=== PATIENT | female | born 1980 | race Caucasian/White ===

== ENCOUNTER 2021-07-10 19:50 | Emergency (ER) | payer MEDICAID ==
[2021-07-10] MEDS: Ondansetron 4 MG/2 ML SDV IVPUSH ONE (20:30)
[2021-07-10] MEDS: Ondansetron 4 MG/2 ML SDV ONE (20:45)
[2021-07-10] MEDS: Ketorolac 30 MG/ML SDV IVPUSH ONE (20:45)
[2021-07-10] MEDS: diphenhydrAMINE 50 MG/ML SDV IVPUSH ONE (20:46)
[2021-07-10] MEDS: Sodium Chloride 0.9% 1,000 ML ONE (20:46)
[2021-07-10] MEDS: Sodium Chloride 0.9% 1,000 ML IV ONE (20:47)
[2021-07-10 21:22] VITALS: BP 146/85; PULSE 84
[2021-07-10] MEDS: Acetaminophen/HYDROcodone 325-10 MG Tab PO ONE (21:54)
== END 2021-07-10 21:54 | disposition home or self-care (01) ==
LOC: KA.ED 19:50
DX: G43.109 Migraine with aura, not intractable, without status migrainosus (principal); I10 Essential (primary) hypertension; K21.9 Gastro-esophageal reflux disease without esophagitis; E66.9 Obesity, unspecified; Z68.41 Body mass index [BMI] 40.0-44.9, adult; Z88.7 Allergy status to serum and vaccine; Z79.899 Other long term (current) drug therapy
CPT/HCPCS: 96374; 96375; 99283; A9270; J1200; J1885; J2405; J7030

== ENCOUNTER 2021-07-21 15:59 | Emergency (ER) | payer MEDICAID ==
[2021-07-21] MEDS ORDERED: diphenhydrAMINE 50 MG/ML SDV IVPUSH ONE (16:33)
[2021-07-21] MEDS ORDERED: Sodium Chloride 0.9% 1,000 ML IV ONE (16:33)
[2021-07-21 17:13] LABS: ANION GAP 10.1 mmol/L (5-15); CHLORIDE,CL 101 mmol/L (98-107); SODIUM,NA 139 mmol/L (136-145)
[2021-07-21] MEDS ORDERED: Ketorolac 30 MG/ML SDV IM ONE (17:17)
[2021-07-21] MEDS: Ketorolac 30 MG/ML SDV IVPUSH ONE ×2 (17:28→17:31)
== END 2021-07-21 18:20 | disposition home or self-care (01) ==
LOC: KA.ED 15:59
DX: G43.909 Migraine, unspecified, not intractable, without status migrainosus (principal); I10 Essential (primary) hypertension; E66.9 Obesity, unspecified; Z68.30 Body mass index [BMI] 30.0-30.9, adult; Z88.7 Allergy status to serum and vaccine; Z79.899 Other long term (current) drug therapy
CPT/HCPCS: 36415; 80053; 85025; 96372; 96374; 96375; 99283; J1200; J1885; J7030

== ENCOUNTER 2021-07-30 13:05 | Emergency (ER) | payer MEDICAID ==
[2021-07-30] MEDS ORDERED: Sodium Chloride 0.9% 10 ML Syringe FLUSH PRN (13:09)
[2021-07-30] MEDS ORDERED: Sodium Chloride 0.9% 1,000 ML IV ONE (13:09)
[2021-07-30] MEDS ORDERED: Ketorolac 30 MG/ML SDV IVPUSH ONE (13:09)
[2021-07-30] MEDS ORDERED: Metoclopramide 10 MG/2 ML SDV IVPUSH ONE (13:09)
[2021-07-30] MEDS ORDERED: diphenhydrAMINE 50 MG/ML SDV IVPUSH ONE (13:09)
== END 2021-07-30 14:35 | disposition home or self-care (01) ==
LOC: KA.ED 13:05
DX: G43.919 Migraine, unspecified, intractable, without status migrainosus (principal); I10 Essential (primary) hypertension; J45.909 Unspecified asthma, uncomplicated; Z79.899 Other long term (current) drug therapy; Z88.7 Allergy status to serum and vaccine
CPT/HCPCS: 96374; 96375; 99283-25; 99284; J1200; J1885; J2765; J3490; J7030

== ENCOUNTER 2023-01-31 21:27 | Emergency (ER) | payer MEDICAID ==
[2023-01-31] MEDS ORDERED: Cephalexin 250 MG Cap PO ONE (22:12)
== END 2023-01-31 22:33 | disposition home or self-care (01) ==
LOC: KA.ED 21:27
DX: L03.116 Cellulitis of left lower limb (principal); Z88.7 Allergy status to serum and vaccine
CPT/HCPCS: 10060; 87070; 87075; 87205; 99283; A9270; 87186

== ENCOUNTER 2025-01-12 20:03 | Emergency (ER) | payer MEDICAID ==
[2025-01-12] MEDS ORDERED: Sodium Chloride 0.9% 10 ML Syringe FLUSH PRN (20:23)
[2025-01-12] MEDS: Sodium Chloride 0.9% 10 ML Syringe FLUSH PRN (20:30)
[2025-01-12 20:36] LABS: BASOPHILS ABSOLUTE AUTO 0.02 10^3/uL (0.00-0.10); BASOPHILS PERCENT AUTO 0.2 % (0.0-1.0); EOSINOPHILS ABSOLUTE AUTO 0.24 10^3/uL (0.10-0.30); EOSINOPHILS PERCENT AUTO 2.5 % (1.0-3.0); IMMATURE GRAN ABSOLUTE AUTO 0.02 10^3/uL (0.00-0.04); IMMATURE GRAN PERCENT AUTO 0.2 % (0.0-0.4); LYMPHOCYTES ABSOLUTE AUTO 2.89 10^3/uL (1.00-4.00); LYMPHOCYTES PERCENT AUTO 29.6 % (20.0-40.0); MEAN PLATELET VOLUME 10.2 fL (7.4-10.4); MONOCYTES ABSOLUTE AUTO 0.83 10^3/uL (0.10-0.80); MONOCYTES PERCENT AUTO 8.5 % (2.0-8.0); NEUTROPHILS ABSOLUTE AUTO 5.76 10^3/uL (2.50-7.00); NEUTROPHILS PERCENT AUTO 59.0 % (50.0-70.0); PLATELET COUNT,PLT 242 10^3/uL (150-400); RED BLOOD CELL COUNT 4.26 10^6/uL (3.80-5.50); RED CELL DISTRIBUTION WIDTH 12.9 % (11.5-14.5); WHITE BLOOD CELL COUNT,WBC 9.76 10^3/uL (5.00-10.00)
[2025-01-12] MEDS: Ondansetron 4 MG/2 ML SDV IVPUSH ONE (20:39)
[2025-01-12 20:54] LABS: ALANINE AMINOTRANSFERASE,ALT 44 U/L (14-63); ASPARTATE AMNIOTRANSFERASE,AST 22 U/L (15-37); BILIRUBIN TOTAL 0.5 mg/dL (0.2-1.0); BLOOD UREA NITROGEN,BUN 10 mg/dL (7-18); CARBON DIOXIDE,CO2 31.4 mmol/L (21.0-32.0); CHLORIDE,CL 102 mmol/L (98-107); CREATININE 0.92 mg/dL (0.51-1.17); GLUCOSE RANDOM 129 mg/dL (70-140); POTASSIUM,K 3.6 mmol/L (3.5-5.1); PROTEIN TOTAL,TP 7.0 g/dL (6.4-8.2); SODIUM,NA 140 mmol/L (136-145)
[2025-01-12 20:55] LABS: ESTIMATED GFR 79 mL/min (>=60)
[2025-01-12] MEDS: diphenhydrAMINE 50 MG/ML SDV IVPUSH ONE (21:16)
[2025-01-12] MEDS: Ketorolac 30 MG/ML SDV IVPUSH ONE (21:20)
== END 2025-01-12 21:57 | disposition home or self-care (01) ==
LOC: KA.ED 20:03
DX: G43.909 Migraine, unspecified, not intractable, without status migrainosus (principal); I10 Essential (primary) hypertension; E66.9 Obesity, unspecified; K21.9 Gastro-esophageal reflux disease without esophagitis; Z79.899 Other long term (current) drug therapy; Z88.7 Allergy status to serum and vaccine; Z86.16 Personal history of COVID-19
CPT/HCPCS: 36415; 80053; 83605; 84484; 85025; 93010; 96361; 96374; 96375; 99284; 99284-25; J1200; J1885; J2405; J7030